=== PATIENT | male | born 1970 | race Caucasian/White ===

== ENCOUNTER → 2018-12-23 | Outpatient (CLI) | payer SELFPAY ==
--- NOTE | 2018-12-23 20:48 | Diagnostic Imaging Report ---
INDICATION: Left breast pain. Correlation is made with a diagnostic mammogram earlier same date. FINDINGS: Sonographic interrogation of the retroareolar left breast was performed. There is heterogeneous tissue consistent with gynecomastia. No discrete solid or cystic mass is identified IMPRESSION: Features consistent with gynecomastia. ACR BI-RADS Category 2: Benign findings. Dictated by: Dictated on workstation # [id number]
--- NOTE | 2018-12-23 21:08 | Diagnostic Imaging Report ---
INDICATION: Left breast pain. COMPARISON: No prior studies are available for comparison. EXAMINATION: 2D and 3D bilateral diagnostic mammography was performed with CAD. FINDINGS: There is mild fibroglandular tissue in the retroareolar right breast. There is significant density and probable fibroglandular tissue in the left breast retroareolar region as well as mid depth, medially and laterally. No suspicious calcifications are seen. No discrete mass is identified. IMPRESSION: Findings suggestive of bilateral gynecomastia, much greater on the left. Sonographic interrogation of the left breast is recommended and will be performed today. ACR BI-RADS Category 0: Incomplete. (Needs additional imaging evaluation). Result letter will be mailed to the patient. Note: At least 10% of breast cancer is not imaged by mammography. Dictated by: Dictated on workstation # [id number]
== END ==
LOC: RAD 14:16
PROVIDERS: ATTEND Nurse Practitioner Family
DX: N64.4 Mastodynia (principal)
CPT/HCPCS: 76642; 77066